=== PATIENT | female | born 1950 | race Caucasian/White ===

== ENCOUNTER 2017-01-18 15:46 | Observation (INO) | payer OTHER ==
--- NOTE | ~2017-01-18 | DS ---
Discharge Summary [facility] [address] [place]. [address] NAME: MELIDA BELLA : 46 STATUS : DIS Jen PAT#: [id number] AGE: 66 ADM/REG DATE : 01/18/17 MR#: [id number] REPORT SERV DATE: 01/21/17 DICTATED BY: JR. BEY WILLIAM JOHN DATE: 01/20/17 REPORT STATUS : Draft TRANSCRIBED BY: CURT DATE: 01/20/17 ADMISSION DATE: 01/18/2017 DISCHARGE DATE: 01/20/2017 DISCHARGE DIAGNOSES: 1. Multilobar community-acquired pneumonia. 2. Acute hypoxic respiratory failure. 3. Chronic rate controlled atrial fibrillation, on apixaban. 4. History of coronary artery disease. OPERATIONS, PROCEDURES, AND TREATMENTS: 1. Chest x-ray, portable done on 01/18/2017, which showed suspected new right upper and lower lobe infiltrates. 2. Blood cultures x2 done on 01/18/2017 which were sterile. MEDICATIONS: 1. Norvasc 10 mg orally daily. 2. Apixaban 5 mg orally twice a day. 3. Aspirin 81 mg orally daily. 4. Lipitor 40 mg orally daily. 5. Tessalon Perles 100 mg three times a day as needed. 6. Celexa 20 mg orally daily. 7. Fenofibrate 160 mg orally daily. 8. Lasix 20 mg every Tuesday, Tuesday, and Tuesday. 9. Synthroid 88 mcg orally daily. 10.Lisinopril 40 mg orally daily. 11.Multivitamin tablet orally daily. 12.Metoprolol tartrate 50 mg orally twice a day. 13.[place]-3 fatty acid 1200 mg orally twice a day. 14.Potassium chloride 10 mEq orally every Tuesday, Tuesday, and Tuesday. 15.Prevacid 20 mg orally daily. 16.Cefdinir 300 mg orally twice a day for five days. 17.Azithromycin 250 mg orally daily for five days. HOSPITAL COURSE: The patient was a 66-year-old white female, who presented to the emergency room with complaint of three days of fevers, cough, sputum production, and shortness of breath. She said the symptoms began three days ago, started with a fever of up to 103 with severe cough occasionally productive of sputum. She also reported shortness of breath. For full details of the admission history, physical, and presenting data please see Dr. Cisneros's excellent dictated history and physical. In short, the patient had a chest x-ray and symptoms consistent with community-acquired pneumonia. She had blood cultures drawn which were sterile today and was placed empirically on Rocephin and azithromycin. The patient was given incentive spirometer and Acapella device as well as guaifenesin to aid in sputum expectoration. She remained hypoxic through hospital day #3, at which point, she was saturating 94% to 98% on room air with sitting. Discharge Summary [place] [address] [place]. [address] NAME: MELIDA BELLA : 46 STATUS : DIS Jen PAT#: [id number] AGE: 66 ADM/REG DATE : 01/18/17 MR#: [id number] REPORT SERV DATE: 01/21/17 DICTATED BY: JR. BEY WILLIAM JOHN DATE: 01/20/17 REPORT STATUS : Draft TRANSCRIBED BY: CURT DATE: 01/20/17 She will be ambulated to ensure she maintains oxygenation with ambulation. As to the patient's chronic rate controlled atrial fibrillation she was on apixaban and metoprolol without difficulty. The patient did have some spikes in blood pressure, but overall her systolic blood pressure was between 130 and 150. She will be discharged home today 01/20/2017. She will complete five additional days of cefdinir 300 mg twice a day and azithromycin 250 mg daily. She will follow with primary care physician, Clarice Baker N.P., in one to two weeks. DISCHARGE PHYSICAL EXAMINATION: Please see daily progress note. DISCHARGE LABORATORY DATA: Please see daily progress note. DISCHARGE DIET: Regular. ACTIVITY: As tolerated. This discharge took 32 minutes for patient encounter, coordination of care, and documentation. WJabierF/CURT Delano Bey Jr, MD / [id number] CC: Delano Bey Jr, MD Judith Buhrman, N.P.
--- NOTE | ~2017-01-18 | HP ---
History And Physical [place] [address] [facility] [place]. [address] NAME: MELIDA BELLA : 46 STATUS : ADM Jen PAT#: [id number] AGE: 66 ADM/REG DATE : 01/18/17 MR#: [id number] REPORT SERV DATE: 01/19/17 DICTATED BY: CLIFTON WU DATE: 01/18/17 REPORT STATUS : Draft TRANSCRIBED BY: MODL DATE: 01/18/17 DATE OF ADMISSION: 01/18/2017 POINT OF ENTRY: [facility] Emergency Department. PRIMARY CARE PHYSICIAN: Nurse practitioner, Clarice Baker at [facility]. PRIMARY [employer]DER: Delano Adorno M.D., Ph.D, F.A.C.C. CHIEF COMPLAINT: Flu-like symptoms. HISTORY OF PRESENT ILLNESS: Ms Bella is a 66-year-old female with a history of hypertension; hyperlipidemia; atrial fibrillation, on anticoagulation as well as hypothyroidism; and coronary artery disease who presents to the emergency department today with a three-day history of fevers, cough, sputum production, as well as shortness of breath. The patient states that her symptoms began about three days ago. She stated she had a fever as high as 103 degrees Fahrenheit, about three days ago. She describes a severe cough productive of occasional sputum. The patient also reports some shortness of breath, primarily with exertion as well as upon lying supine. She, otherwise, denies any chest pain, palpitations, abdominal pain, nausea, diarrhea, constipation, dysuria, lower extremity edema, melena, hematochezia, hemoptysis, or hematemesis. She did report a single episode of emesis over the weekend as well as a sensation that her throat was closing up over the weekend, but this seems to have improved as she has now tolerated some food here in the emergency department. Comprehensive review of systems, otherwise, negative unless listed in the history of present illness. Initial evaluation in the emergency department for labs, otherwise, unremarkable. Flu swab was negative. She was noted to be mildly hypoxemic, on room air and placed on 2 liters by nasal cannula. Chest x-ray consistent with a right lower and upper lobe pneumonia. She is subsequently admitted to the Hospital Service for further evaluation and management. PREVIOUS MEDICAL HISTORY: 1. Atrial fibrillation, on Eliquis anticoagulation. 2. Hypertension. 3. Hyperlipidemia. 4. Hypothyroidism. 5. Coronary artery disease with prior PCI. 6. Gastroesophageal reflux disease. 7. Anxiety and depression. 8. Left breast cancer, status post lumpectomy and radiation therapy. PAST SURGICAL HISTORY: 1. Left breast lumpectomy. History And Physical [place] [address] [place]. [address] NAME: MELIDA BELLA : 46 STATUS : ADM Jen PAT#: [id number] AGE: 66 ADM/REG DATE : 01/18/17 MR#: [id number] REPORT SERV DATE: 01/19/17 DICTATED BY: CLIFTON WU DATE: 01/18/17 REPORT STATUS : Draft TRANSCRIBED BY: CURT DATE: 01/18/17 2. Appendectomy. ALLERGIES: SULFA DRUGS. HOME MEDICATIONS: 1. Norvasc 10 mg daily. 2. Eliquis 5 mg b.i.d. 3. Aspirin 81 mg daily. 4. Atorvastatin 40 mg daily. 5. Celexa 20 mg daily. 6. Fenofibrate 160 mg daily. 7. Lasix 20 mg Tuesday, Tuesday, Tuesday. 8. Levothyroxine 88 mcg daily. 9. Lisinopril 40 mg daily. 10.Metoprolol 50 mg b.i.d. 11.Multivitamin one tablet daily. 12.[place]-3 fatty acid and fish oil 1200 mg b.i.d. 13.Potassium chloride 10 mEq Tuesday, Tuesday, and Tuesday. 14.Prevacid [id number] p.r.n. SOCIAL HISTORY: Denies any tobacco, alcohol, or illicits. FAMILY MEDICAL HISTORY: Mother with coronary artery disease and hypertension. Father with peripheral vascular disease. Siblings with diabetes. LABS AND IMAGIN. White count is 10.1, hemoglobin is 12.4, hematocrit is 37.3, and platelet count is 263. 2. Sodium is 140, potassium 3.2, chloride 104, carbon dioxide 26, BUN 13, creatinine 0.78, glucose is 111, calcium is 8.9, protein is 7.6, albumin is 3.0, bilirubin is 0.7, ALT is 35, AST is 50, and alkaline phosphatase is 92. 3. Troponin is less than 0.02. 4. Lactic acid is 2.1. 5. ABG; pH is 7.41, pCO2 is 30, PO2 is 59, bicarb is 19, and saturating 91% on room air. 6. Flu swab was negative. 7. Chest x-ray shows a right upper and lower lobe infiltrates per radiology report. PHYSICAL EXAMINATION: VITAL SIGNS: Temperature is 98.7 degrees Fahrenheit, pulse is 85, respirations 16, saturating 95% on 2 liters of cannula, and blood pressure 159/70. GENERAL: The patient is awake, alert, in no acute distress, and resting comfortably in bed. She is a well-developed, well-nourished female. HEENT: Atraumatic and normocephalic. Moist mucous membranes. Pupils are equal, round, reactive to light and accommodation. Extraocular eye movements are intact. No scleral icterus. NECK: No jugular venous distention. No carotid bruits. CARDIAC: Regular rate and rhythm. No murmurs, rubs, or gallops. Normal S1 and normal S2. LUNGS: She is frequently coughing, is on oxygen, but in no respiratory distress. Does have History And Physical [address] [address] NAME: MELIDA BELLA : 46 STATUS : ADM Jen PAT#: [id number] AGE: 66 ADM/REG DATE : 01/18/17 MR#: [id number] REPORT SERV DATE: 01/19/17 DICTATED BY: CLIFTON WU DATE: 01/18/17 REPORT STATUS : Draft TRANSCRIBED BY: MODJose Antonio DATE: 01/18/17 some mild inspiratory rales and rhonchi in the right lung base. ABDOMEN: Soft, nontender, and nondistended with good bowel sounds. No rebound, guarding, or rigidity. EXTREMITIES: Warm and perfused. No cyanosis, clubbing, or edema. SKIN: Warm and dry. PSYCH: Affect appropriate. NEURO: Alert and oriented x3. Cranial nerves II through XII are grossly intact. Speech is normal. Gait is not assessed. ASSESSMENT AND PLAN: Ms Bella is a 66-year-old female who presents with a three-day history of cough, sputum production, shortness of breath, as well as fevers and found to have evidence of a community-acquired pneumonia. PROBLEM LIST: 1. Community-acquired pneumonia. 2. Hypoxemia. 3. History of coronary artery disease. 4. History of atrial fibrillation, on anticoagulation. 5. History of hypertension. PLAN: 1. Community-acquired pneumonia. We will place the patient on Rocephin and azithromycin. Blood cultures have been obtained in the emergency department. We will try to obtain sputum culture as well as urinary antigens. Provide supportive care with DuoNebs, Robitussin, as well as Tessalon Perles. 2. Hypoxemia. The patient has some mild hypoxemia on room air. We will attempt to wean as her pneumonia is being treated. Given her reports of orthopnea, we will check a BNP level, but currently appears euvolemic at this time. 3. History of atrial fibrillation. The patient currently is well rate controlled. We will check an EKG. Continue her rate control agents as well as Eliquis. 4. Coronary artery disease. The patient denies any chest pain. Her troponin was negative. Also check an EKG. 5. DVT prophylaxis. The patient is already on Eliquis. 6. Code status. The patient wished to be full code. SHERON/CURT Clifton Wu MD / [id number] CC: Delano Bey Jr, Aline Milian.Jayce History And Physical [address] [address] NAME: MELIDA BELLA JAY JAY : 46 STATUS : ADM Jen PAT#: [id number] AGE: 66 ADM/REG DATE : 01/18/17 MR#: [id number] REPORT SERV DATE: 01/19/17 DICTATED BY: CLIFTON WU DATE: 01/18/17 REPORT STATUS : Draft TRANSCRIBED BY: CURT DATE: 01/18/17 Delano Adorno M.D., Ph.D, F.A.C.C.
[~2017-01-18 15:46] MED LIST: AGGRENOX PO; AMLODIPINE; ASAB PO; KLOR-CON20 MEQ PO; L20 PO; LEVOTHROID50 MCG PO; LISINOPRIL; LOP25 PO; METOPROLOL; MICARDIS80 PO; PROZAC PO; SYNTHROID; [UNRECOGNIZED DRUG - OTHER]
[2017-01-18 16:18] LABS: INFLUENZA A SCREEN NEGATIVE (NEGATIVE); INFLUENZA B SCREEN NEGATIVE (NEGATIVE)
[2017-01-18 17:53] LABS: BASOPHILS 0.1 %; BASOPHILS ABSOLUTE 0.01 10/3/uL (0.0-0.16); EOSINOPHILS 1.3 %; EOSINOPHILS ABSOLUTE 0.13 10/3/uL (0.0-0.53); HEMATOCRIT 37.3 % (36.0-48.0); HEMOGLOBIN 12.4 g/dL (12.0-16.0); IMMATURE GRANULOCYTES 0.1 %; IMMATURE GRANULOCYTES ABSOLUTE 0.01 10/3/uL (0.0-0.11); LYMPHOCYTES 35.2 %; LYMPHOCYTES ABSOLUTE 3.55 10/3/uL (0.67-4.30); MEAN CORPUSCULAR HEMOGLOB 27.8 pg (26.0-34.0); MEAN PLATELET VOLUME 11.2 fL (9.2-13.0); MONOCYTES 7.5 %; MONOCYTES ABSOLUTE 0.76 10/3/uL (0.21-1.20); NEUTROPHILS 55.8 %; NEUTROPHILS ABSOLUTE 5.63 10/3/uL (2.02-8.40); PLATELET COUNT 263 10/3/uL (150-400); RBC DISTRIBUTION WIDTH 12.9 % (12.0-16.0); RED CELL COUNT 4.46 10/6/uL (4.0-5.6)
[2017-01-18 17:54] LABS: ER CBC TAT 0 Hrs 13 Mins; MANUAL DIFF NO %; MEAN CORPUS HGB CONC 33.2 g/dL (32.0-36.0); MEAN CORPUSCULAR VOLUME 83.6 fL (80-100); WHITE BLOOD CELLS 10.1 10/3/uL (4.5-10.5)
[2017-01-18 18:08] LABS: ALLENS TEST Pos; BE (BASE EXCESS) -4.8 MEQ/L (0 +/- 2.5); CARBOXYHEMOGLOBIN 1.1 % (0-3); HCO3 (ACTUAL BICARBONATE) 18.7 MEQ/L (23-27); INSTRUMENT SERIAL # 8087; METHEMOGLOBIN 0.1 % (0-3); O2 CONTENT 16.4 VOL% (18-24); PCO2 (CO2 TENSION) 30 MMHG (35-45); PO2 (O2 TENSION) 59 MMHG (79-93); SAMPLE Arterial; pH 7.41 (7.37-7.43)
[2017-01-18 18:09] LABS: A/G RATIO 0.7 (0.7-1.9); ALKALINE PHOSPHATASE 92 U/L (45-117); CALCIUM, SERUM 8.9 MG/DL (8.5-10.4); CHLORIDE, SERUM 104 MMOL/L (96-112); CO2 (CARBON DIOXIDE) 26 MMOL/L (24-34); CREATININE 0.78 MG/DL (0.55-1.02); GFR AFRICAN AMERICAN 91 ML/MIN (>=60); GFR NON AFRICAN AMERICAN 78 ML/MIN (>=60); GLUCOSE, SERUM 111 MG/DL (60-99); SGOT(AST) 50 U/L (5-40); SGPT(ALT) 35 U/L (5-65); SODIUM, SERUM 140 MMOL/L (135-148); TOTAL BILIRUBIN 0.7 MG/DL (0-1.2); TOTAL PROTEIN 7.6 G/DL (6.0-8.5); TROPONIN I <0.02 NG/ML (<0.05)
[2017-01-18 18:13] LABS: BUN (BLOOD UREA NITROGEN) 13 MG/DL (6-23); GLOBULIN 4.6 G/DL (2.5-4.1); LACTATE 2.1 MMOL/L (0.3-2.4); POTASSIUM, SERUM 3.2 MMOL/L (3.5-5.3)
[2017-01-18] MEDS ORDERED: LIPITOR40 PO (19:17)
[2017-01-18] MEDS ORDERED: LOFIB160 PO (19:17)
[2017-01-18] MEDS ORDERED: HALF81 PO (19:17)
[2017-01-18] MEDS ORDERED: KLOR-CON 1010 MEQ PO (19:18)
[2017-01-18] MEDS ORDERED: LOP50 PO (19:18)
[2017-01-18] MEDS ORDERED: NORV10 PO (19:19)
[2017-01-18] MEDS ORDERED: L20 PO (19:19)
[2017-01-18] MEDS ORDERED: ELIQUIS 5 MG TAB5 MG PO (19:19)
[2017-01-18] MEDS ORDERED: FISH OIL1200 MG PO (19:20)
[2017-01-18] MEDS ORDERED: LISINOPRIL40 MG PO (19:20)
[2017-01-18] MEDS ORDERED: SYN88 PO (19:20)
[2017-01-18] MEDS ORDERED: CELEXA20 PO (19:20)
[2017-01-18] MEDS ORDERED: PREVACID OTC PO (19:21)
[2017-01-18] MEDS ORDERED: MULTIPLE VIT PO (19:21)
[2017-01-19 01:56] LABS: BASOPHILS 0.1 %; BASOPHILS ABSOLUTE 0.01 10/3/uL (0.0-0.16); EOSINOPHILS 0.2 %; EOSINOPHILS ABSOLUTE 0.02 10/3/uL (0.0-0.53); HEMOGLOBIN 11.3 g/dL (12.0-16.0); IMMATURE GRANULOCYTES 0.3 %; IMMATURE GRANULOCYTES ABSOLUTE 0.03 10/3/uL (0.0-0.11); LYMPHOCYTES 15.3 %; LYMPHOCYTES ABSOLUTE 1.52 10/3/uL (0.67-4.30); MANUAL DIFF NO %; MEAN CORPUS HGB CONC 33.2 g/dL (32.0-36.0); MEAN CORPUSCULAR VOLUME 84.4 fL (80-100); MEAN PLATELET VOLUME 10.8 fL (9.2-13.0); NEUTROPHILS 77.1 %; NEUTROPHILS ABSOLUTE 7.65 10/3/uL (2.02-8.40); PLATELET COUNT 236 10/3/uL (150-400); RBC DISTRIBUTION WIDTH 12.9 % (12.0-16.0); RED CELL COUNT 4.03 10/6/uL (4.0-5.6); WHITE BLOOD CELLS 9.9 10/3/uL (4.5-10.5)
[2017-01-19 02:19] LABS: BUN (BLOOD UREA NITROGEN) 14 MG/DL (6-23); CALCIUM, SERUM 8.6 MG/DL (8.5-10.4); CHLORIDE, SERUM 108 MMOL/L (96-112); CO2 (CARBON DIOXIDE) 24 MMOL/L (24-34); CREATININE 0.69 MG/DL (0.55-1.02); GFR AFRICAN AMERICAN 104 ML/MIN (>=60); GFR NON AFRICAN AMERICAN 89 ML/MIN (>=60); GLUCOSE, SERUM 117 MG/DL (60-99); SODIUM, SERUM 141 MMOL/L (135-148); TROPONIN I <0.02 NG/ML (<0.05)
[2017-01-20] MEDS ORDERED: ZITH250 PO (10:14)
[2017-01-20] MEDS ORDERED: TESS PO (10:14)
[2017-01-20] MEDS ORDERED: OMNICEF300 PO (10:15)
== END 2017-01-20 10:51 | disposition home or self-care (01) ==
LOC: ER 15:46 → CDU1 19:37
PROVIDERS: Hospitalist; Internal Medicine; Nurse Practitioner
DX: J96.01 Acute respiratory failure with hypoxia (principal); J18.9 Pneumonia, unspecified organism; I25.10 Atherosclerotic heart disease of native coronary artery without angina pectoris; I48.91 Unspecified atrial fibrillation; I10 Essential (primary) hypertension; Z79.01 Long term (current) use of anticoagulants; E78.5 Hyperlipidemia, unspecified; E03.9 Hypothyroidism, unspecified; K21.9 Gastro-esophageal reflux disease without esophagitis; Z90.49 Acquired absence of other specified parts of digestive tract; Z88.2 Allergy status to sulfonamides; Z79.82 Long term (current) use of aspirin
CPT/HCPCS: 36600; 71010; 80048; 80053; 82805; 83605; 83880; 84484; 85025; 87040; 87804; 93005; 94640; 94667; 96374; 96375; 96376; 99284; A9270-GY; G0378; J0456